=== PATIENT | female | born 1970 ===

== ENCOUNTER 2024-01-27 14:52 | Outpatient (CLI) | payer OTHER, SELFPAY ==
--- NOTE | ~2024-01-27 | MR_ITS ---
EXAMINATION: MR shoulder LT wo con DATE: 01/27/2024 15:22 INDICATION: Acute left shoulder pain. TECHNIQUE: Magnetic resonance imaging (MRI) of the left shoulder was performed without intravenous co ntrast. Sequences included axial PD-weighted FS FSE, coronal oblique PD-weighted FS FSE and T2-weight ed FS FSE, and sagittal oblique T2-weighted FS FSE and T1-weighted FSE. COMPARISON: None. FINDINGS: Coracoacromial arch: The acromion undersurface is curved in morphology (type II). There is moderate acromioclavicular join t osteoarthritis. There is mild subacromial/subdeltoid bursitis. Rotator cuff: There is mild supraspinatus and infraspinatus tendinopathy. Teres minor tendon is normal. Subscapular is tendon is normal. The rotator cuff muscle bellies are normal. Biceps tendon and glenoid labrum: Biceps tendon is in bicipital groove. There is moderate intra-articular biceps tendinopathy. The lulu oid labrum is normal. Fluid: There is no glenohumeral joint effusion. Bones/cartilage: There is cartilage surface irregularity of glenoid and humeral head. There is a 1.7 cm mass of increa sed T2-weighted signal intensity in humeral head. IMPRESSION: 1. Mild rotator cuff tendinopathy. No tear. 2. Mild glenohumeral joint chondrosis. 3. Moderate intra-articular biceps tendinopathy. 4. Moderate acromioclavicular joint osteoarthritis. 5. 1.7 cm mass in humeral head. In the absence of known malignancy, this finding is likely an enchond ted. 6. Mild subacromial/subdeltoid bursitis. Reviewed, dictated and finalized at location A. OUT WAITER/WAITRESS IMPRESSION: 1. Mild rotator cuff tendinopathy. No tear. 2. Mild glenohumeral joint chondrosis. 3. Moderate intra-articular biceps tendinopathy. 4. Moderate acromioclavicular joint osteoarthritis. 5. 1.7 cm mass in humeral head. In the absence of known malignancy, this findin g is likely an enchondroma. 6. Mild subacromial/subdeltoid bursitis.
== END 2024-01-27 14:53 | disposition home or self-care (01) ==
PROVIDERS: PCP Physician Assistant; Visit Provider Physician Assistant
DX: S43.422A Sprain of left rotator cuff capsule, initial encounter (principal); X58.XXXA Exposure to other specified factors, initial encounter; M94.212 Chondromalacia, left shoulder; M75.22 Bicipital tendinitis, left shoulder; M19.012 Primary osteoarthritis, left shoulder; R22.32 Localized swelling, mass and lump, left upper limb; M75.52 Bursitis of left shoulder
CPT/HCPCS: 73221